=== PATIENT | female | born 1960 | race Caucasian/White ===

== ENCOUNTER 2020-07-31 06:05 | Day surgery (SDC) | payer MEDICARE, OTHER ==
[2020-07-24 16:53] LABS: BASOPHILS # (AUTO) 0.1 X10'3 (0-0.2); BASOPHILS % (AUTO) 0.7 % (0-1); EOSINOPHILS # (AUTO) 0.1 X10'3 (0-0.9); EOSINOPHILS % (AUTO) 1.5 % (0-6); LYMPHOCYTES # (AUTO) 2.8 X10'3 (1.1-4.8); LYMPHOCYTES % (AUTO) 31.1 % (21-51); MEAN CORPUSCULAR HEMOGLOBIN 30.3 PG (27.0-31.0); MEAN CORPUSCULAR HGB CONC 33.5 g/dL (33.0-36.5); MEAN CORPUSCULAR VOLUME 90.6 FL (78-98); MEAN PLATELET VOLUME 8.6 FL (7.4-10.4); MONOCYTES # (AUTO) 0.7 X10'3 (0-0.9); MONOCYTES % (AUTO) 8.2 % (2-12); NEUTROPHILS # (AUTO) 5.3 X10'3 (1.8-7.7); NEUTROPHILS % (AUTO) 58.5 % (42-75); PRE OP HEMATOCRIT 43.2 % (35.0-45.0); PRE OP HEMOGLOBIN 14.5 g/dL (12.0-16.0); PRE OP PLATELET COUNT 294 X10'3 (140-440); RED BLOOD COUNT 4.77 X10'6 (4.20-5.60); RED CELL DISTRIBUTION WIDTH 14.7 % (11.5-14.5)
[2020-07-24 17:04] LABS: ALBUMIN 3.8 G/DL (3.4-5.0); ALBUMIN/GLOBULIN RATIO 0.9 (1.1-1.5); ALKALINE PHOSPHATASE 95 IU/L (46-116); BLOOD UREA NITROGEN 11 MG/DL (7-18); BUN/CREATININE RATIO 14.5 (6.6-38.0); CALCIUM 9.7 MG/DL (8.5-10.1); CHLORIDE 104 MMOL/L (99-107); CREATININE 0.76 MG/DL (0.40-0.90); PRE OP ALT 58 U/L (30-65); PRE OP ANION GAP 8 (8-16); PRE OP AST 30 U/L (10-37); PRE OP BILIRUB, TOTAL 0.2 MG/DL (0.0-1.0); PRE OP GLUCOSE 170 MG/DL (70-104); PRE OP POTASSIUM 4.1 MMOL/L (3.4-5.1); PRE OP SODIUM 141 MMOL/L (135-145); TOTAL CARBON DIOXIDE 29.4 MMOL/L (24-32); eGFR 78 ML/MIN
[~2020-07-31] VITALS: Ht 157.5 cm; Wt 97.1 kg
[2020-07-31] VITALS (14 sets, daily range): BP systolic 109–158; BP diastolic 57–81
[~2020-07-31 06:05] MED LIST: ALBU18HF2 INH; ASPI-1053 PO; ATOR20TA66 PO; CHOL20004 PO; CYAN500T64 PO; CYCL-145 PO; GABA-532 PO; LOSA50TA64 PO; METF-950 PO; MULT-1085 PO; NAPR-56 PO; OMEG-143 PO; albuterol 2.5 MG/3 ML nebule NEB ONE; ceFAZolin 2gm in dextrose, iso 50 ML IV ONE; famotidine 20mg tablet PO ONE; ringers solution, lacted 1,000 ML IV SCH
[2020-07-31] MEDS ORDERED: LIDOcaine 1% (10mg/ml) 2ml vial ONE (06:56)
[2020-07-31] MEDS ORDERED: ROPIVAcaine 0.5% (5mg/ml) 30ml vial ONE ×2 (07:34→08:35)
[2020-07-31] MEDS ORDERED: meperidine/PF 25mg/ml syringe IV PRN ×3 (07:35)
[2020-07-31] MEDS ORDERED: ROPIVAcaine 0.2% (10 MG/5 ML) BOLUS INJECTION INTERSCALE PRN (07:35)
[2020-07-31] MEDS ORDERED: ondansetron/PF 4mg/2ml inj IV PRN (07:35)
[2020-07-31] MEDS ORDERED: morphine 2 MG/ML inj. syringe IV PRN (07:35)
[2020-07-31] MEDS ORDERED: labetalol 20mg/4ml (5mg/ml) syringe IV PRN (07:35)
[2020-07-31] MEDS ORDERED: ROPIVAcaine 0.2%/PF PUMP/bolus 550 ML INTERSCALE SCH (07:35)
[2020-07-31] MEDS ORDERED: acetaminophen 1,000mg/100ml IV 100 ML IV PRN (07:35)
[2020-07-31] MEDS ORDERED: proCHLORperazine 10 MG/2 ml inj IV PRN (07:35)
[2020-07-31] MEDS ORDERED: hydrALAZINE 20mg/ml inj. IV PRN (07:35)
[2020-07-31] MEDS ORDERED: morphine 4 MG/ML inj SYRINge IV PRN (07:35)
[2020-07-31] MEDS ORDERED: ringers solution, lacted 1,000 ML IV SCH (07:35)
[2020-07-31] MEDS ORDERED: sevoflurane 250ml liquid IH ONE (07:52)
[2020-07-31] MEDS ORDERED: fentaNYL/PF 50MCG/1 ML 2ML syringe ONE (08:00)
[2020-07-31] MEDS ORDERED: midazolam 2 mg/2 ml injection ONE (08:29)
[2020-07-31] MEDS ORDERED: LIDOcaine 2% (20mg/ml) 5ml vial ONE (08:35)
[2020-07-31] MEDS ORDERED: ondansetron/PF 4mg/2ml inj ONE (08:35)
[2020-07-31] MEDS ORDERED: rocuronium 10mg/ml inj IV ONE (08:35)
[2020-07-31] MEDS ORDERED: dexamethasone sod phosphate 4mg/ml inj. ONE (08:35)
[2020-07-31] MEDS ORDERED: propofol inj 20 ML IV ONE (08:35)
[2020-07-31] MEDS ORDERED: LIDOcaine 1%/PF 5ML 10 MG/ML VIAL ONE (08:36)
[2020-07-31] MEDS ORDERED: glycopyrrolate 0.2mg/ml inj ONE (09:54)
[2020-07-31] MEDS ORDERED: neostigmine methylsulfate 1 MG/ML 10ml vial ONE (09:54)
--- NOTE | 2020-07-31 09:55 | NUR ---
Received from OR via , accompanied by Anesthesiologist DR WOLFE and report given by Anesthesiolgist. AWAKENS TO VOICE. VITALS STABLE. DRESSING DI. SY PAIN. RUE IN SIMPLE SLING. FINGERS WARM AND PINK.
[2020-07-31] MEDS ORDERED: HYDROcodone/acetaminophen 10/325mg tab PO PRN (10:15)
--- NOTE | 2020-07-31 13:05 | NUR ---
AWAKE AND ORIENTED. VITALS STABLE. DRESSING DI. SY PAIN. HOME WITH HER SPOUSE AT THIS TIME.
== END 2020-07-31 13:05 | disposition home or self-care (01) ==
LOC: PAS 06:05
PROVIDERS: ATTEND Orthopaedic Surgery
DX: M75.111 Incomplete rotator cuff tear or rupture of right shoulder, not specified as traumatic (principal); M75.31 Calcific tendinitis of right shoulder; M75.21 Bicipital tendinitis, right shoulder; M75.41 Impingement syndrome of right shoulder; M19.011 Primary osteoarthritis, right shoulder; M75.51 Bursitis of right shoulder; G89.18 Other acute postprocedural pain; M06.9 Rheumatoid arthritis, unspecified; D64.9 Anemia, unspecified; E11.9 Type 2 diabetes mellitus without complications; I10 Essential (primary) hypertension; E78.00 Pure hypercholesterolemia, unspecified; F17.210 Nicotine dependence, cigarettes, uncomplicated; Z98.51 Tubal ligation status; Z98.890 Other specified postprocedural states; Z96.651 Presence of right artificial knee joint; Z79.84 Long term (current) use of oral hypoglycemic drugs; Z79.899 Other long term (current) drug therapy; Z79.82 Long term (current) use of aspirin; Z20.828 Contact with and (suspected) exposure to other viral communicable diseases
CPT/HCPCS: 29824; 29826; 29827; 36415; 64416; 71046; 76937; 80053; 82948; 85025; 87635; 94640; C1713; J0780; J1100; J2001; J2250; J2405; J2704; J2710; J2795; J3010; J7120; A4618; A6449; A7000; J3490